=== PATIENT | male | born 1980 | race Caucasian/White ===

== ENCOUNTER → 2020-07-12 16:28 | Outpatient (CLI) | payer OTHER, SELFPAY ==
[2020-07-12 17:08] LABS: Influenza A - CEPHEID Flu A NEGATIVE (NEGATIVE); Influenza B - CEPHEID Flu B NEGATIVE (NEGATIVE)
[2020-07-12 17:26] LABS: COVID19 -Nasal RAPID Negative (Negative)
== END ==
PROVIDERS: Visit Provider Physician Assistant
DX: Z11.59 Encounter for screening for other viral diseases (principal); R68.89 Other general symptoms and signs
CPT/HCPCS: 87502; 87635